=== PATIENT | female | born 1990 | race Caucasian/White ===

== ENCOUNTER → 2020-12-05 09:08 | Outpatient (BNVA) | payer OTHER, SELFPAY | PROVIDERS: Family Provider Family Medicine; Visit Provider Nurse Practitioner Family | DX: Z20.822 Contact with and (suspected) exposure to COVID-19 (principal); R51.9 Headache, unspecified; R52 Pain, unspecified; R53.83 Other fatigue | CPT/HCPCS: 87635 ==